=== PATIENT | female | born 1950 | race Caucasian/White ===

== ENCOUNTER 2017-05-09 08:15 | Inpatient (IN) | payer OTHER ==
[2017-05-09] MEDS ORDERED: MILLIPRED5 MG (09:43)
[2017-05-09] MEDS ORDERED: ACIDO FOLICO 1MG (09:43)
[2017-05-09] MEDS ORDERED: LOSARTAN POTASS50 MG (09:44)
[2017-05-16] MEDS ORDERED: XARELTO10 MG PO (15:41)
[2017-05-16] MEDS ORDERED: DUI500 PO (15:41)
[2017-05-16] MEDS ORDERED: PERCOCET 5-3251 EACH PO (15:41)
== END 2017-05-16 18:23 | DRG 470 ==
LOC: O/R 05-14 05:35 → SURH 05-14 05:35 → EDBD 05-14 08:15 → SURH 05-14 08:15
PROVIDERS: Orthopaedic Surgery
PROC: 0MNN0ZZ Release Right Knee Bursa and Ligament, Open Approach (ICD-10-PCS; 2017-05-14)
PROC: 0SRC0J9 Replacement of Right Knee Joint with Synthetic Substitute, Cemented, Open Approach (ICD-10-PCS; principal; 2017-05-14 12:00)
DX: M17.11 Unilateral primary osteoarthritis, right knee (principal); M81.0 Age-related osteoporosis without current pathological fracture; I10 Essential (primary) hypertension; E03.8 Other specified hypothyroidism; I11.9 Hypertensive heart disease without heart failure; M06.89 Other specified rheumatoid arthritis, multiple sites; F03.90 Unspecified dementia, unspecified severity, without behavioral disturbance, psychotic disturbance, mood disturbance, and anxiety; Z78.1 Physical restraint status